=== PATIENT | male | born 1940 | race Caucasian/White ===

== ENCOUNTER → 2019-10-12 | Day surgery (SDC) | payer MEDICARE, OTHER ==
[~2019-10-12] VITALS: Ht 182.9 cm; Wt 84.0 kg
[~2019-10-12] MED LIST: ACETAMINOPHEN 500 MG TABLET PO ONE; ASPI-630 PO; BICA50TA5 PO; BUPIVACAINE MPF 0.25% 30 ML VIAL. ONE; CALC200T3 PO; DEXAMETHASONE SOD PHOS 4 MG/ML VIAL ONE; HYDROmorphone 2 MG/ML VIAL IV PRN; IV RINGERS,LACTATED 1000ML 1,000 ML IV SCH; LEVO88TA4 PO; LIDOCAINE 2% PF 5 ML VIAL. ONE; MORPHINE SULFATE 2 MG/ML VIAL. IV PRN; ONDANSETRON PF 4 MG/2 ML VIAL. IV PRN; ONDANSETRON PF 4 MG/2 ML VIAL. ONE; PRED20TA PO; PROCHLORPERAZINE 10 MG/2 ML VIAL. IV PRN; PROPOFOL 20 ML IV ONE; SEVOFLURANE 16 TO 30 MINUTES. IH ONE; SIMV40TA PO; ceFAZolin 2GM PREMIX 2 GM/50 ML BAG IV ONE; fentaNYL PF VIAL 100 MCG/2 ML VIAL IV PRN
--- NOTE | 2019-10-12 12:47 | PDOC4 ---
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 Procedure of right temporal artery biopsy was explained to the patient in detail all risks benefits were also discussed including bleeding infection alternatives to this procedure also discussed with patient who seemed to understand and gave both verbal and written consent had the procedure performed. Patient was taken to the operating room placed in supine position general anesthesia was initiated once patient was sleep and intubated his right temporal area was prepped and draped usual sterile fashion using Betadine solution. An area around the temporal artery was injected with 1% Marcaine plain and incision was made with 15 blade scalpel was carried down through the subcutaneous tissue using electrocautery divided hemostasis down to the artery which was visualized there was secured proximally distally with Vicryl ligatures and excised sharply and sent for pathology. Wound was then closed in a single layer running 40 septic and a Monocryl Mastisol Steri-Strips and island dressing were applied. Patient was awakened expend an operating room taken to recovery in stable condition all sponge instrument needle counts listed as correct estimated blood loss 5 mL FREDI STUBBS MD Oct 12, 2019 12:47
--- NOTE | 2019-10-12 12:49 | DISCH ---
DISCHARGE INSTRUCTIONS Condition on Discharge Condition on Discharge: Stable Activity After Discharge Activity Instructions for Disc: Avoid exertion Diet after Discharge Diet after Discharge: Regular Wound Incision Care Other wound/incision instructi: May shower in 24 hours Contacting the after DC Call your doctor for: If your condition worsens Follow-Up Follow up with: Dr. Stubbs in 2 weeks FREDI STUBBS MD Oct 12, 2019 12:49
[2019-10-12 13:35] VITALS: BP 126/74
--- NOTE | 2019-10-13 17:06 | PATHOLOGY ---
[facility] Accession Number: [id number] . 01 Material submitted: . artery - RIGHT TEMPORAL ARTERY. Modifiers: right, temporal . 01 Clinical history: . arteritis . 02 Diagnosis: Right temporal artery biopsy: - Temporal arteritis. . (JPM:mm; 10/13/2019) [facility] 10/13/2019 1253 Local . 02 Electronically signed: . Gian Prado MD, Pathologist NPI- [id number] . 01 Gross description: . The specimen is received in formalin, labeled "Gabyelainekhoadavid Caleb", "right temporal artery". Received is a short tubular segment of pale boogie soft tissue, measuring 0.5 cm in length and 0.2 cm in diameter. One aspect of the segment is inked black. The specimen is entirely submitted intact in cassette A1.([facility]; 10/12/2019) [facility] 10/13/2019 1253 Local . 02 Pathologist provided ICD-10: I77.6 . 02 CPT . 379094 Specimen Comment: A courtesy copy of this report has been sent to [phone] Specimen Comment: [id number] Specimen Comment: Report sent to / DR KURTZ Performed at: 01 [facility] [address], [place], [place] [id number] MD Richard Jama MD Phone: [phone] Performed at: 02 [facility] [address], [place] [id number] MD Gian Prado MD Phone: [phone]
== END | disposition home or self-care (01) ==
LOC: SURG 08:56
PROVIDERS: ATTEND Surgery
DX: H53.141 Visual discomfort, right eye (principal); M31.6 Other giant cell arteritis; Z79.82 Long term (current) use of aspirin; Z79.899 Other long term (current) drug therapy
CPT/HCPCS: 37609; A7015; J0696; J1100; J2001; J2405; J2704; J3490; 88305; A4461